=== PATIENT | male | born 1975 | race Two or more races ===

== ENCOUNTER 2024-06-22 11:29 | Emergency (ER) | payer MEDICAID, SELFPAY ==
[2024-06-22 11:30] VITALS: BMI 29.6
[2024-06-22 11:51] VITALS: BP 118/77; PULSE 78; RESP 18; TEMP 36.8; O2SAT 98
--- NOTE | 2024-06-22 12:17 | PD.EDEYE ---
ED Eye Problem RME/HPI General Chief complaint: Eye Problems Stated complaint: RIGHT EYE SWELLING/PAIN AND TEARING SINCE LAST NIG Time Seen by Provider: 06/22/24 12:02 Source: patient Arrival date/time: 06/22/24 11:29 This is a 49-year-old male who presents to the emergency department with complaints of pain and irritation to his right eye. Patient states he was walking around and felt debris fall into his right eye. Since then has been irritating every time he blinks. Denies any eye pain other than irritation. Patient denies any other associated symptoms or aggravating factors. No modifying factors, no radiation, no migration. Denies Diplopia or difficulty with vision. Mode of arrival: ambulatory Limitations: no limitations Related Data Previous Rx's ?Medication ?Instructions ?Recorded clindamycin HCl 300 mg capsule 300 mg PO TID #21 caps 08/22/23 ibuprofen 800 mg tablet 800 mg PO TID PRN pain #30 tabs 08/22/23 cephalexin 500 mg capsule 500 mg PO QID #28 caps 08/26/23 tramadol 37.5 mg-acetaminophen 325 1 tab PO Q8H PRN pain #15 tabs 05/13/24 mg tablet ibuprofen 800 mg tablet 800 mg PO Q8H PRN pain #20 tabs 06/22/24 ofloxacin 0.3 % eye drops See Rx Instructions ophthalmic 06/22/24 (eye) .COMPLEX #10 mL Allergies Allergy/AdvReac Type Severity Reaction Status Date / Time No Known Allergies Allergy Verified 06/22/24 11:32 Review of Systems Review of Systems Systems Reviewed: All systems reviewed, normal except as documented Narrative Review of Systems: Gen: No fever, no chills, no weight loss EYES: No discharge, no visual changes, +eye irritation HEENT: No ear pain, no congestion, no sore throat PULM: No shortness of breath, no cough, no congestion CV: No chest pain, no dyspnea on exertion, no palpitations GI: No nausea, no vomiting, no diarrhea, no pain, no constipation : No frequency, no urgency,? no dysuria Musc/skel: No joint pain, no back pain Skin: No rash? Psyc: No hallucinations, no depression Heme/Lymph: No easy bleeding or bruising tendencies Neuro: No weakness, no headache Past Medical History Past Medical History CARDIAC: Negative Cardiac Disorders or Congestive Heart Failure RESPIRATORY: Negative Chronic Obstructive Pulmonary Disease (COPD) or Asthma GENITOURINARY: Negative Renal Disease ENDOCRINE: Negative Diabetes Mellitus Type 1 or Diabetes Mellitus Type 2 HEMATOLOGIC: Negative Sickle Cell Disease Social History SMOKING STATUS: Never smoker SUBSTANCE USE: does not use ED Exam General Limitations: Present no limitations General appearance: Present alert and in no apparent distress Head Head exam: Present atraumatic Eye Eye exam: Present PERRL, EOMI and conjunctival injection Expanded Eye Exam Eyelids: right: erythema Pupils: Bilateral: regular, round and reactive Sclera/Conjunctival: right: injection ENT ENT exam: Present normal oropharynx and mucous membranes moist Expanded ENT Exam Nasal speculum exam: Bilateral: normal Teeth exam: Present normal inspection Neck Neck exam: Present normal inspection, full ROM and trachea midline Chest Chest inspection: Present normal inspection and symmetric chest wall rise Respiratory Respiratory exam: Present normal lung sounds bilaterally Cardiovascular Cardiovascular exam: Present regular rate, normal rhythm and normal heart sounds Abdominal Exam Abdominal exam: Present soft and normal bowel sounds Extremities Exam Extremities exam: Present normal inspection and full ROM Back Exam Back exam: Present normal inspection and full ROM Neurological Exam Neurological exam: Present alert, oriented X3 and CN II-XII intact Psychiatric Psychiatric exam: Present normal affect and normal mood Skin Skin exam: Present warm, dry, intact and normal color Course Quality Measures none Orders Category Date Time Status Hdz Lamp to Bedside X1 Care 06/22/24 12:02 Completed Fluorescein Sodium [[id number]] Med 06/22/24 12:02 Discontinued 1 mg BOTH EYES X1 ONE TETRACAINE Op Ju 0.5% [Pontocaine Op Ju 0.5%] Med 06/22/24 12:02 Discontinued 1 drop RIGHT EYE X1 ONE Vital Signs Vital signs: Vital Signs Temperature 98.3 F 06/22/24 11:51 Pulse Rate 78 06/22/24 11:51 Respiratory Rate 18 06/22/24 11:51 Blood Pressure 118/77 06/22/24 11:51 Pulse Oximetry (%) 98 06/22/24 11:51 Oxygen Delivery Method Room Air 06/22/24 11:51 Eye MDM Narrative MDM Narrative:: Patient noted to have corneal abrasion on fluorescein examination with wood's lamp of the right eye. Patient denies use contact lens use, and has no other findings suggestive of corneal ulceration at this time. No evidence of corneal foreign body on exam. Significant improvement in pain and visual acuity noted with application of topical anesthetic to the eye. Prior to discharge, we discussed return precautions, treatment with lubricating eye drops and NSAIDs, ABX and follow up with primary care doctor within 1 week as needed for further evaluation, and the patient demonstrated understanding and agreement. Patient data External records reviewed:: [facility] previous records Clinical information provided by:: patient Social determinants that could affect healthcare access:: none Patient has the following chronic illnesses:: no How is presenting disease/condition affected by chronic disease/condition?: no chronic disease Evaluation data The following diagnostics were reviewed and interpreted by me:: other (specify) Lab and/or radiology exams considered but not ordered:: no Interpretation Summary: n/a Medications / Prescriptions Medications or Prescriptions considered but not ordered:: no Medication administrations:: Medication Administration History Discontinued Medications Fluorescein Sodium (Fluorescein Sod 1 Mg Strp) 1 mg BOTH EYES X1 ONE Stop: 06/22/24 12:03 Last Admin: 06/22/24 13:23 Dose: 1 mg Documented By: Tetracaine HCl (Tetracaine Pf Op Ju 0.5% 4 Ml Drpette) 1 drop RIGHT EYE X1 ONE Stop: 06/22/24 12:03 Last Admin: 06/22/24 13:23 Dose: 1 drop Documented By: All medications administered and effective Consultations Consultation(s) initiated? (list below): No Diagnosis Eye Problem Differential Diagnosis: corneal abrasion, conjunctivitis, periorbital cellulitis, subconjunctival hemorrhage and corneal ulcer Most likely diagnosis given after review of the tests above:: corneal abrasion Admission Indicated Admission indicated?: not indicated Admission Request Was there a request for admission?: No Disposition Plan Disposition Plan: Discharge Discharge Attestation Discharge Attestation: The patient and all family members were given an opportunity to ask questions and understood the discharge instructions. Discharge instructions specifically effects, indications for sooner follow up or return to the emergency department, and the expected course of current diagnosis. Patient condition: Stable Discharge Plan Plan Patient Disposition: HOME (Self Care) Patient condition on transfer: Stable Prescriptions/Referrals Prescriptions/Med Rec: New ofloxacin 0.3 % drops See Rx Instructions .ROUTE .COMPLEX Qty: 10 0RF Rx Instructions: put 1-2 drps into affected eye(s) every 2-4 h x 2 days, then 1-2 drps 4 times/day days 3-7 ibuprofen 800 mg tablet 800 mg PO Q8H PRN (Reason: pain) Qty: 20 0RF No Action cephalexin 500 mg capsule 500 mg PO QID Qty: 28 0RF clindamycin HCl 300 mg capsule 300 mg PO TID Qty: 21 0RF ibuprofen 800 mg tablet 800 mg PO TID PRN (Reason: pain) Qty: 30 0RF tramadol-acetaminophen 37.5-325 mg tablet 1 tab PO Q8H PRN (Reason: pain) Qty: 15 0RF Referrals: Kapil Landis MD [Physician] - In 1 week Problem List Clinical Impression: Cornea abrasion Patient/Caregiver Discharge Instructions Discharge Activity: activity as tolerated Education Materials: ED Corneal Abrasion Additional Instructions: - You need to make AN appointment with an eyelet machine operator for further evaluation. Use the drops as directed. reTurn to the emergency department with any worsening symptoms any condition Print Language: Chinese Stand Alone Forms: Angela Award Info., Patient Portal Info Letter Attestation MD Attestation The patient was seen by the midlevel practitioner. I, the co-signing physician, was present during the entire ER visit. While I did not physically examine the patient, I was available for consultation as needed.
[2024-06-22] MEDS: TETRACAINE PF OP SOL 0.5% 4 ML DRPETTE 1 DROP RIGHT EYE (13:23)
[2024-06-22] MEDS: FLUORESCEIN SOD 1 MG STRP BOTH EYES (13:23)
== END 2024-06-22 13:25 | disposition home or self-care (01) ==
LOC: SERX 13:22
PROVIDERS: Emergency Provider Emergency Medicine; PCP Family Medicine
DX: S05.01XA Injury of conjunctiva and corneal abrasion without foreign body, right eye, initial encounter (principal); W44.8XXA Other foreign body entering into or through a natural orifice, initial encounter; Y93.01 Activity, walking, marching and hiking
CPT/HCPCS: 99283

== ENCOUNTER 2024-08-24 05:19 | Emergency (ER) | payer MEDICAID, SELFPAY ==
[2024-08-24 05:21] VITALS: BMI 30.4
[2024-08-24 05:49] VITALS: BP 125/76; PULSE 83; RESP 17; TEMP 36.7; O2SAT 98
--- NOTE | 2024-08-24 06:55 | EDNOTE_ITS ---
ED Skin Abcess FB-RME/HPI General Chief complaint: Skin/Abscess/Foreign Body Stated complaint: HEAD ABSCESS Time Seen by Provider: 08/24/24 06:20 Arrival date/time: 08/24/24 05:19 49-year-old male presents emergency department with complaints of abscess to his scalp patient report symptoms ongoing since Sunday patient was no fever nausea or vomiting Limitations: no limitations Related Data Previous Rx's ?Medication ?Instructions ?Recorded clindamycin HCl 300 mg capsule 300 mg PO TID #21 caps 08/22/23 ibuprofen 800 mg tablet 800 mg PO TID PRN pain #30 t abs 08/22/23 cephalexin 500 mg capsule 500 mg PO QID #28 caps 08/26 tramadol 37.5 mg-acetaminophen 325 1 tab PO Q8H PRN pa in #15 tabs 05/13/24 mg tablet ibuprofen 800 mg tablet 800 mg PO Q8H PRN pain #20 t abs 06/22/24 ofloxacin 0.3 % eye drops See Rx Instructions ophthalm ic 06/22/24 (eye) .COMPLEX #10 mL clindamycin HCl 150 mg capsule 450 mg (3 x 150 mg) PO TID 7 days 08/24/24 #63 caps ibuprofen 800 mg tablet 800 mg PO TID PRN pain #30 t abs 08/24/24 mupirocin 2 % topical ointment 1 applic topical TID 10 days #22 08/24/24 grams Allergies Allergy/AdvReac Type Severity Reaction Status Date / Time No Known Allergies Allergy Verified 06/22/24 11:32 Review of Systems Review of Systems Systems Reviewed: All systems reviewed, normal except as documented Constitutional Constitutional: Reports system reviewed and no additional complaints, except as documented, Denies fever(s) and Denies headache(s) Eyes Eyes: Reports system reviewed and no additional complaints, except as documented and Denies blurry vision ENT Ears, Nose, Mouth, and Throat: Reports system reviewed and no additional complaints, except as documented, Denies headache(s), Denies nasal congestion and Denies nasal discharge Cardiovascular Cardiovascular: Reports system reviewed and no additional complaints, except as documented, Denies chest pain and Denies dyspnea Respiratory Respiratory: Reports system reviewed and no additional complaints, except as documented, Denies chest congestion, Denies cough and Denies dyspnea Gastrointestinal Gastrointestinal: Reports system reviewed and no additional complaints, except as documented and Denies abdominal pain Integumentary/Breasts Skin/Breast: Reports system reviewed and no additional complaints, except as documented, Denies rash and Reports other (Abscess scalp) Neurologic Neurologic: Reports system reviewed and no additional complaints, except as documented, Reports as per HPI and Denies headache(s) Past Medical History Past Medical History NEUROLOGIC: Negative Neurological Disorders CARDIAC: Negative Cardiac Disorders ED Exam General Limitations: Present no limitations General appearance: Present alert and in no apparent distress Expanded Head Exam Head image: 2 1. Abscess scalp Eye Eye exam: Present normal appearance, PERRL and EOMI ENT ENT exam: Present normal exam, normal oropharynx and mucous membranes moist Neck Neck exam: Present normal inspection, full ROM and trachea midline Chest Chest inspection: Present normal inspection and symmetric chest wall rise Respiratory Respiratory exam: Present normal lung sounds bilaterally Cardiovascular Cardiovascular exam: Present regular rate, normal rhythm and normal heart sounds Abdominal Exam Abdominal exam: Present soft and normal bowel sounds Extremities Exam Extremities exam: Present normal inspection and full ROM Back Exam Back exam: Present normal inspection and full ROM Neurological Exam Neurological exam: Present alert, oriented X3 and CN II-XII intact Psychiatric Psychiatric exam: Present normal affect and normal mood Skin Skin exam: Present warm, dry, intact and normal color Course Quality Measures none Orders Category Date Time Status Set Up Suture Tray STAT Care 08/24/24 06:29 Active Wound Care NOW Care 08/24/24 06:29 Active Ibuprofen Tab [Motrin Tab] Med 08/24/24 06:55 Discontinued 800 mg PO X1 ONE Lidocaine 1% 20 ml [Xylocaine 1% 20 ML] Med 08/24/24 06:53 Discontinued 2.1 ml INFL X1 ONE Lidocaine 1% 20 ml [Xylocaine 1% 20 ML] Med 08/24/24 06:29 Discontinued 20 ml INFL X1 ONE cefTRIAXone [Rocephin] Med 08/24/24 06:53 Discontinued 1,000 mg IM X1 ONE Vital Signs Vital signs: Vital Signs Temperature 98.1 F 08/24/24 05:49 Pulse Rate 83 08/24/24 05:49 Respiratory Rate 17 08/24/24 05:49 Blood Pressure 125/76 08/24/24 05:49 Pulse Oximetry (%) 98 08/24/24 05:49 Oxygen Delivery Method Room Air 08/24/24 05:49 O2 saturation 98% room air within normal limits Procedures -ED Abscess I/D Site: scalp Side (if applicable): left Local Anesthetic: lidocaine 1% Amount of anesthesia used (mL): 5 Technique: incised with #11 blade Amount of fluid expressed (mL): 5 Irrigation: Yes Packing used?: none Complications: pain Skin / Abscess / Foreign Body MDM Narrative MDM Narrative:: 49-year-old male presents emergency department with complaints of abscess to his scalp patient report symptoms ongoing since Sunday patient was no fever nausea or vomiting On exam patient is abscess left side of his scalp I&D performed copious amounts of pus and drainage removed Patient given antibiotics here as well as pain medication Patient discharged home with antibiotics and pain medication Patient discharged home in no distress to follow-up with primary care doctor in the next 24 to 48 hours and for any worsening symptoms to return to the ER immediately Patient data External records reviewed:: [facility] previous records Clinical information provided by:: patient Social determinants that could affect healthcare access:: none Patient has the following chronic illnesses:: None How is presenting disease/condition affected by chronic disease/condition?: no chronic disease (N/A) Evaluation data The following diagnostics were reviewed and interpreted by me:: other (specify) (N/A) Lab and/or radiology exams considered but not ordered:: Consider not ordered Interpretation Summary: N/A Medications / Prescriptions Medications or Prescriptions considered but not ordered:: Given Medication administrations:: Medication Administration History Discontinued Medications Ceftriaxone Sodium (Ceftriaxone Sod Inj 1,000 Mg Vial) 1,000 mg IM X1 ONE Stop: 08/24/24 06:54 Ibuprofen (Ibuprofen Tab 400 Mg Tablet) 800 mg PO X1 ONE Stop: 08/24/24 06:56 Lidocaine HCl (Lidocaine Hcl 1% 20 Ml Vial) 20 ml INFL X1 ONE Stop: 08/24/24 06:30 Lidocaine HCl (Lidocaine Hcl 1% 20 Ml Vial) 2.1 ml INFL X1 ONE Stop: 08/24/24 06:54 Given Consultations Consultation(s) initiated? (list below): No Diagnosis Skin/Abscess Differential Diagnosis: abscess of skin or subcutaneous tissue and cellulitis Most likely diagnosis given after review of the tests above:: Abscess Admission Indicated Admission indicated?: not indicated Admission Request Was there a request for admission?: No Disposition Plan Disposition Plan: Discharge Discharge Attestation Discharge Attestation: The patient and all family members were given an opportunity to ask questions and understood the discharge instructions. Discharge instructions specifically effects, indications for sooner follow up or return to the emergency department, and the expected course of current diagnosis. Patient condition: Stable Discharge Plan Plan Patient Disposition: HOME (Self Care) Disposition Comment: Stable Prescriptions/Referrals Prescriptions/Med Rec: New ibuprofen 800 mg tablet 800 mg PO TID PRN (Reason: pain) Qty: 30 0RF clindamycin HCl 150 mg capsule 450 mg PO TID 7 Days Qty: 63 0RF mupirocin 2 % ointment 1 applic topical TID 10 Days Qty: 22 0RF No Action cephalexin 500 mg capsule 500 mg PO QID Qty: 28 0RF clindamycin HCl 300 mg capsule 300 mg PO TID Qty: 21 0RF ibuprofen 800 mg tablet 800 mg PO TID PRN (Reason: pain) Qty: 30 0RF tramadol-acetaminophen 37.5-325 mg tablet 1 tab PO Q8H PRN (Reason: pain) Qty: 15 0RF ofloxacin 0.3 % drops See Rx Instructions .ROUTE .COMPLEX Qty: 10 0RF Rx Instructions: put 1-2 drps into affected eye(s) every 2-4 h x 2 days, then 1-2 drps 4 times/day days 3-7 ibuprofen 800 mg tablet 800 mg PO Q8H PRN (Reason: pain) Qty: 20 0RF Referrals: No Primary/Family,Physician [Referring Provider] - 08/25/24 Problem List Clinical Impression: Abscess of scalp Patient/Caregiver Discharge Instructions Education Materials: ED Abscess, Incision And Drainage Additional Instructions: Please follow up with your primary care doctor in the next 24-48hrs for any worsening symptoms return here immediately Print Language: Angolan Stand Alone Forms: Angela Award Info., Patient Portal Info Letter PA/APPLICATION DESIGN ENGINEER Supervising Physician PA/APPLICATION DESIGN ENGINEER Supervising Physician: Dr Glynn
[2024-08-24] MEDS: IBUPROFEN TAB 400 MG TABLET 800 MG PO (07:02)
[2024-08-24] MEDS: LIDOCAINE HCL 1% 20 ML VIAL INFL (07:04)
[2024-08-24] MEDS: cefTRIAXone SOD INJ 1,000 MG VIAL 1000 MG IM (07:06)
[2024-08-24 07:20] VITALS: BP 120/78; PULSE 74; RESP 16; TEMP 36.7; O2SAT 99
== END 2024-08-24 07:20 | disposition home or self-care (01) ==
PROVIDERS: Emergency Provider Emergency Medicine; PCP Family Medicine
DX: L02.811 Cutaneous abscess of head [any part, except face] (principal)
CPT/HCPCS: 10060; 96372; 99283; J0696; J3490; A9270

== ENCOUNTER 2024-10-16 06:57 | Emergency (ER) | payer MEDICAID, SELFPAY ==
[2024-10-16 06:58] VITALS: BMI 31.8
[2024-10-16 07:23] VITALS: BP 148/74; PULSE 99; RESP 18; TEMP 37.2; O2SAT 97
[2024-10-16] MEDS: LIDOCAINE HCL 1% 20 ML VIAL INFL (07:37)
[2024-10-16] MEDS: LIDOCAINE HCL 1% 20 ML VIAL 2.1 ML INFL (07:37)
[2024-10-16] MEDS: cefTRIAXone SOD INJ 1,000 MG VIAL 1000 MG IM (07:38)
--- NOTE | 2024-10-16 07:49 | EDNOTE_ITS ---
ED Skin Abcess FB-RME/HPI General Chief complaint: Skin/Abscess/Foreign Body Stated complaint: ASBCESS UNDER LEFT ARMPIT Time Seen by Provider: 10/16/24 06:59 Arrival date/time: 10/16/24 06:57 49-year-old male presents to the emergency department today complains of abscess to his left armpit patient reports symptoms ongoing for the last 3 days Limitations: no limitations Related Data Previous Rx's ?Medication ?Instructions ?Recorded clindamycin HCl 300 mg capsule 300 mg PO TID #21 caps 08/22/23 ibuprofen 800 mg tablet 800 mg PO TID PRN pain #30 t abs 08/22/23 cephalexin 500 mg capsule 500 mg PO QID #28 caps 08/26 tramadol 37.5 mg-acetaminophen 325 1 tab PO Q8H PRN pa in #15 tabs 05/13/24 mg tablet ibuprofen 800 mg tablet 800 mg PO Q8H PRN pain #20 t abs 06/22/24 ofloxacin 0.3 % eye drops See Rx Instructions ophthalm ic 06/22/24 (eye) .COMPLEX #10 mL ibuprofen 800 mg tablet 800 mg PO TID PRN pain #30 t abs 08/24/24 clindamycin HCl 150 mg capsule 450 mg (3 x 150 mg) PO TID 7 days 10/16/24 #63 caps hydrocodone 5 mg-acetaminophen 325 1 tab PO BID PRN pa in #10 tabs 10/16/24 mg tablet ibuprofen 800 mg tablet 800 mg PO TID PRN pain #30 t abs 10/16/24 Allergies Allergy/AdvReac Type Severity Reaction Status Date / Time No Known Allergies Allergy Verified 06/22/24 11:32 Review of Systems Review of Systems Systems Reviewed: All systems reviewed, normal except as documented Constitutional Constitutional: Reports system reviewed and no additional complaints, except as documented, Denies fever(s) and Denies headache(s) Eyes Eyes: Reports system reviewed and no additional complaints, except as documented and Denies blurry vision ENT Ears, Nose, Mouth, and Throat: Reports system reviewed and no additional complaints, except as documented, Denies headache(s), Denies nasal congestion and Denies nasal discharge Cardiovascular Cardiovascular: Reports system reviewed and no additional complaints, except as documented, Denies chest pain and Denies dyspnea Respiratory Respiratory: Reports system reviewed and no additional complaints, except as documented, Denies chest congestion, Denies cough and Denies dyspnea Gastrointestinal Gastrointestinal: Reports system reviewed and no additional complaints, except as documented and Denies abdominal pain Integumentary/Breasts Skin/Breast: Reports system reviewed and no additional complaints, except as documented, Denies rash and Reports other (Multiple abscess left axilla) Neurologic Neurologic: Reports system reviewed and no additional complaints, except as documented, Reports as per HPI and Denies headache(s) Past Medical History Past Medical History NEUROLOGIC: Negative Neurological Disorders CARDIAC: Negative Cardiac Disorders or Congestive Heart Failure RESPIRATORY: Negative Chronic Obstructive Pulmonary Disease (COPD) or Asthma GENITOURINARY: Negative Renal Disease ENDOCRINE: Negative Diabetes Mellitus Type 1 or Diabetes Mellitus Type 2 HEMATOLOGIC: Negative Sickle Cell Disease Social History SMOKING STATUS: Never smoker SUBSTANCE USE: does not use ED Exam General Limitations: Present no limitations General appearance: Present alert and in no apparent distress Head Head exam: Present atraumatic Eye Eye exam: Present normal appearance, PERRL and EOMI ENT ENT exam: Present normal exam, normal oropharynx and mucous membranes moist Neck Neck exam: Present normal inspection, full ROM and trachea midline Chest Chest inspection: Present normal inspection and symmetric chest wall rise Respiratory Respiratory exam: Present normal lung sounds bilaterally Cardiovascular Cardiovascular exam: Present regular rate, normal rhythm and normal heart sounds Abdominal Exam Abdominal exam: Present soft and normal bowel sounds Extremities Exam Extremities exam: Present normal inspection and full ROM Back Exam Back exam: Present normal inspection and full ROM Neurological Exam Neurological exam: Present alert, oriented X3 and CN II-XII intact Psychiatric Psychiatric exam: Present normal affect and normal mood Skin Skin exam: Present warm, dry and other (Multiple abscess with surrounding cellulitis left axilla) Course Quality Measures none Orders Category Date Time Status Lidocaine 1% 20 ml [Xylocaine 1% 20 ML] Med 10/16/24 07:27 Discontinued 2.1 ml INFL X1 ONE Lidocaine 1% 20 ml [Xylocaine 1% 20 ML] Med 10/16/24 07:27 Discontinued 20 ml INFL X1 ONE cefTRIAXone [Rocephin] Med 10/16/24 07:27 Discontinued 1,000 mg IM X1 ONE Vital Signs Vital signs: Vital Signs Temperature 98.9 F 10/16/24 07:23 Pulse Rate 99 10/16/24 07:23 Respiratory Rate 18 10/16/24 07:23 Blood Pressure 148/74 H 10/16/24 07:23 Pulse Oximetry (%) 97 10/16/24 07:23 Oxygen Delivery Method Room Air 10/16/24 07:23 O2 saturation 97% room air within normal limits Procedures -ED Abscess I/D Site: upper extremity Side (if applicable): left Sedation/analgesia: none Local Anesthetic: lidocaine 1% Amount of anesthesia used (mL): 10 Technique: incised with #11 blade Amount of fluid expressed (mL): 20 Irrigation: No Packing used?: plain Complications: pain Skin / Abscess / Foreign Body MDM Narrative MDM Narrative:: 49-year-old male presents to the emergency department today complains of abscess to his left armpit patient reports symptoms ongoing for the last 3 days On exam patient has abscess abscess to left axilla with surrounding cellulitis which required I&D Copious amounts of purulent drainage expressed from the abscess Packing applied Patient given Rocephin here in the emergency department Patient discharged with course of antibiotics instructed return tomorrow for packing removal and repeat Rocephin injection for worsening symptoms return immediately Patient data External records reviewed:: [facility] previous records Clinical information provided by:: patient Social determinants that could affect healthcare access:: none Patient has the following chronic illnesses:: None How is presenting disease/condition affected by chronic disease/condition?: no chronic disease Evaluation data The following diagnostics were reviewed and interpreted by me:: other (specify) (N/A) Lab and/or radiology exams considered but not ordered:: Consider not ordered Interpretation Summary: N/A Medications / Prescriptions Medications or Prescriptions considered but not ordered:: Given Medication administrations:: Medication Administration History Discontinued Medications Ceftriaxone Sodium (Ceftriaxone Sod Inj 1,000 Mg Vial) 1,000 mg IM X1 ONE Stop: 10/16/24 07:28 Last Admin: 10/16/24 07:38 Dose: 1,000 mg Documented By: KARY Lidocaine HCl (Lidocaine Hcl 1% 20 Ml Vial) 20 ml INFL X1 ONE Stop: 10/16/24 07:28 Last Admin: 10/16/24 07:37 Dose: 20 ml Documented By: KARY Lidocaine HCl (Lidocaine Hcl 1% 20 Ml Vial) 2.1 ml INFL X1 ONE Stop: 10/16/24 07:28 Last Admin: 10/16/24 07:37 Dose: 2.1 ml Documented By: KARY Given Consultations Consultation(s) initiated? (list below): No Diagnosis Skin/Abscess Differential Diagnosis: abscess of skin or subcutaneous tissue and cellulitis Most likely diagnosis given after review of the tests above:: Abscess with surrounding cellulitis left axilla Admission Indicated Admission indicated?: not indicated Admission Request Was there a request for admission?: No Disposition Plan Disposition Plan: Discharge Discharge Attestation Discharge Attestation: The patient and all family members were given an opportunity to ask questions and understood the discharge instructions. Discharge instructions specifically effects, indications for sooner follow up or return to the emergency department, and the expected course of current diagnosis. Patient condition: Stable Discharge Plan Plan Patient Disposition: HOME (Self Care) Disposition Comment: Stable Prescriptions/Referrals Prescriptions/Med Rec: New ibuprofen 800 mg tablet 800 mg PO TID PRN (Reason: pain) Qty: 30 0RF hydrocodone-acetaminophen 5-325 mg tablet 1 tab PO BID MDD 10 PRN (Reason: pain) Qty: 10 0RF clindamycin HCl 150 mg capsule 450 mg PO TID 7 Days Qty: 63 0RF No Action cephalexin 500 mg capsule 500 mg PO QID Qty: 28 0RF clindamycin HCl 300 mg capsule 300 mg PO TID Qty: 21 0RF ibuprofen 800 mg tablet 800 mg PO TID PRN (Reason: pain) Qty: 30 0RF tramadol-acetaminophen 37.5-325 mg tablet 1 tab PO Q8H PRN (Reason: pain) Qty: 15 0RF ofloxacin 0.3 % drops See Rx Instructions .ROUTE .COMPLEX Qty: 10 0RF Rx Instructions: put 1-2 drps into affected eye(s) every 2-4 h x 2 days, then 1-2 drps 4 times/day days 3-7 ibuprofen 800 mg tablet 800 mg PO Q8H PRN (Reason: pain) Qty: 20 0RF ibuprofen 800 mg tablet 800 mg PO TID PRN (Reason: pain) Qty: 30 0RF Referrals: Temporary Provider,ED [Primary Care Provider] - In 1 week Problem List Clinical Impression: Abscess of axilla, left Patient/Caregiver Discharge Instructions Education Materials: ED Abscess Antibiotic ... Additional Instructions: Please return tomorrow for reevaluation and repeat Rocephin injection for worsening symptoms return immediately Print Language: Syrian Stand Alone Forms: Angela Award Info., Patient Portal Info Letter PA/PACKAGE DELIVERY ROOM SERVICE RUNNER Supervising Physician LLUVIA/BOONE Supervising Physician: Dr Glynn
== END 2024-10-16 08:10 | disposition home or self-care (01) ==
PROVIDERS: Emergency Provider Emergency Medicine
DX: L02.412 Cutaneous abscess of left axilla (principal)
CPT/HCPCS: 10060; 96372; J0696; J3490

== ENCOUNTER 2024-10-17 12:22 | Emergency (ER) | payer MEDICAID, SELFPAY ==
[2024-10-17 13:28] VITALS: BP 104/73; PULSE 80; RESP 18; TEMP 36.8; O2SAT 98
--- NOTE | 2024-10-17 13:36 | EDNOTE_ITS ---
<Statement entered by Kim Lindsay MD - 10/17/24 14:58> As co-signing physician, I was present and available for consult prn. I concur with the plan and care as documented by the midlevel provider. ED Recheck Abnl Lab Rx-RME/HPI General Chief Complaint: Recheck/Abnormal Lab/Rx Stated Complaint: CAME FOR SHOT Time Seen by Provider: 10/17/24 12:46 Arrival date/time: 10/17/24 12:22 RME / HPI RME / HPI narrative: 49-year-old male patient was brought in by family for evaluation regarding request for ceftriaxone IM. Patient was seen here yesterday for abscess left axilla, incision and drainage was done, packing was done also. Came here and was advised to come for another shot of ceftriaxone IM. Patient verbalized significant provide of symptoms no fever currently taking clindamycin p.o. Related Data Previous Rx's ?Medication ?Instructions ?Recorded clindamycin HCl 300 mg capsule 300 mg PO TID #21 caps 08/22/23 ibuprofen 800 mg tablet 800 mg PO TID PRN pain #30 t abs 08/22/23 cephalexin 500 mg capsule 500 mg PO QID #28 caps 08/26 tramadol 37.5 mg-acetaminophen 325 1 tab PO Q8H PRN pa in #15 tabs 05/13/24 mg tablet ibuprofen 800 mg tablet 800 mg PO Q8H PRN pain #20 t abs 06/22/24 ofloxacin 0.3 % eye drops See Rx Instructions ophthalm ic 06/22/24 (eye) .COMPLEX #10 mL ibuprofen 800 mg tablet 800 mg PO TID PRN pain #30 t abs 08/24/24 clindamycin HCl 150 mg capsule 450 mg (3 x 150 mg) PO TID 7 days 10/16/24 #63 caps hydrocodone 5 mg-acetaminophen 325 1 tab PO BID PRN pa in #10 tabs 10/16/24 mg tablet ibuprofen 800 mg tablet 800 mg PO TID PRN pain #30 t abs 10/16/24 Allergies Allergy/AdvReac Type Severity Reaction Status Date / Time No Known Allergies Allergy Verified 10/17/24 12:24 Review of Systems Review of Systems Narrative Review of Systems: Review of system reviewed and within normal limits except mentioned in HPI ED Exam Narrative Physical exam: VITAL SIGNS: Reviewed. GENERAL APPEARANCE: Alert and interactive, follows commands, no acute distress, HEAD AND FACE: Non-traumatic. ENT: PERRL, pink conjunctivitis, eyelid no trauma, Mucous membrane moist. NECK: Supple, nontender, no nuchal rigidity. CHEST: No tenderness, no crepitus, no paradoxical movement, no retractions. LUNGS: Clear, well ventilated, symmetric, no rales, no wheezing, no ronchi, no stridor, good breath sounds bilaterally. HEART: Regular rate, regular rhythm, no murmur, no gallops. ABDOMEN: Soft, positive bowel sounds, nondistended, no guarding, nontender, no rebound, no masses, RECTAL: Deferred. GENITAL: Deferred. NEUROLOGICAL: Gross motor function intact sensory function intact, Appropriate for age. MUSCULOSKELETAL: low back nontender, full range of motion. EXTREMITIES: Status post I&D, left axillary area, with packing, and puslike drainage. Packing was mobilized by me. Full range of motion. SKIN: Color pink, dry, no rash, no lacerations, no abrasions, no contusions. LYMPHATICS: Deferred. Course Quality Measures none Orders Category Date Time Status cefTRIAXone [Rocephin] 1,000 mg Med 10/17/24 13:36 Discontinued Lidocaine 1% 20 ml [Xylocaine 1% 20 ML] 2.1 ml IM X1 Vital Signs Vital signs: Vital Signs Temperature 98.2 F 10/17/24 13:28 Pulse Rate 80 10/17/24 13:28 Respiratory Rate 18 10/17/24 13:28 Blood Pressure 104/73 10/17/24 13:28 Pulse Oximetry (%) 98 10/17/24 13:28 Oxygen Delivery Method Room Air 10/17/24 13:28 Recheck / Abnormal Lab / Rx MDM Narrative MDM Narrative:: 49-year-old male patient was brought in by family for evaluation regarding request for subtraction IM. Patient was seen here yesterday for abscess left axilla, incision and drainage was done, packing was done also. Came here and was advised to come for another shot of ceftriaxone IM. Patient verbalized significant provide of symptoms no fever currently taking clindamycin p.o. Patient received ceftriaxone IM. Patient was advised to come back tomorrow for removal of packing Patient data External records reviewed:: None Clinical information provided by:: none Social determinants that could affect healthcare access:: none Patient has the following chronic illnesses:: None How is presenting disease/condition affected by chronic disease/condition?: exacerbated by Evaluation data The following diagnostics were reviewed and interpreted by me:: other (specify) Lab and/or radiology exams considered but not ordered:: None Interpretation Summary: None Medications / Prescriptions Medications or Prescriptions considered but not ordered:: None Medication administrations:: Medication Administration History Discontinued Medications Ceftriaxone Sodium 1,000 mg/ (Lidocaine HCl 2.1 ml) 0 mg IM X1 ONE Stop: 10/17/24 13:37 Last Admin: 10/17/24 13:52 Dose: 1,000 mg Documented By: Ceftriaxone IM Consultations Consultation(s) initiated? (list below): No Diagnosis Recheck Differential Diagnosis: other (Wound check, abscess,abscess left axilla sp I and D) Most likely diagnosis given after review of the tests above:: Wound check Admission Indicated Admission indicated?: not indicated Admission Request Was there a request for admission?: No Disposition Plan Disposition Plan: Discharge Discharge Attestation Discharge Attestation: The patient was given an opportunity to ask questions and understood the discharge instructions. Discharge instructions specifically effects, indications for sooner follow up or return to the emergency department, and the expected course of current diagnosis. Patient condition: Stable Discharge Plan Plan Patient Disposition: HOME (Self Care) Disposition Comment: Stable Prescriptions/Referrals Prescriptions/Med Rec: No Action cephalexin 500 mg capsule 500 mg PO QID Qty: 28 0RF clindamycin HCl 300 mg capsule 300 mg PO TID Qty: 21 0RF ibuprofen 800 mg tablet 800 mg PO TID PRN (Reason: pain) Qty: 30 0RF tramadol-acetaminophen 37.5-325 mg tablet 1 tab PO Q8H PRN (Reason: pain) Qty: 15 0RF ofloxacin 0.3 % drops See Rx Instructions .ROUTE .COMPLEX Qty: 10 0RF Rx Instructions: put 1-2 drps into affected eye(s) every 2-4 h x 2 days, then 1-2 drps 4 times/day days 3-7 ibuprofen 800 mg tablet 800 mg PO Q8H PRN (Reason: pain) Qty: 20 0RF ibuprofen 800 mg tablet 800 mg PO TID PRN (Reason: pain) Qty: 30 0RF ibuprofen 800 mg tablet 800 mg PO TID PRN (Reason: pain) Qty: 30 0RF hydrocodone-acetaminophen 5-325 mg tablet 1 tab PO BID MDD 10 PRN (Reason: pain) Qty: 10 0RF clindamycin HCl 150 mg capsule 450 mg PO TID 7 Days Qty: 63 0RF Problem List Clinical Impression: Abscess of axilla, left, Wound check, abscess Patient/Caregiver Discharge Instructions Discharge Activity: activity as tolerated Education Materials: ED Wound Care Additional Instructions: Thank you for the opportunity for serving you today. You are stable for discharged . You are advised to: Follow-up with your PCP in 1 to 2 days Return to ED for worsening of symptoms Increase oral fluids Take medication as prescribed prescribed yesterday Please return to emergency room tomorrow for removal of packing Print Language: Chadian Stand Alone Forms: Angela Award Info., Patient Portal Info Letter PA/BOONE Supervising Physician LLUVIA/BOONE Supervising Physician: MD Neftali
[2024-10-17] MEDS: cefTRIAXone 1,000 MG, LIDOCAINE 1% 20 ML 2.1 ML IM (13:52)
== END 2024-10-17 15:15 | disposition home or self-care (01) ==
LOC: SERX 16:01
PROVIDERS: Emergency Provider Emergency Medicine
DX: L02.412 Cutaneous abscess of left axilla (principal)
CPT/HCPCS: 99283; J0696; J3490

== ENCOUNTER 2024-10-18 07:53 | Emergency (ER) | payer MEDICAID, SELFPAY ==
--- NOTE | 2024-10-18 08:30 | PC.NURSE ---
Wound is clean, small amount of bloody drainage noted. Cleaned with NS. repacked wound covered with abd pad and secured with taped. PT tolerated well.
[2024-10-18 08:37] VITALS: BP 124/84; PULSE 76; RESP 18; TEMP 36.7; O2SAT 99
--- NOTE | 2024-10-18 08:56 | EDNOTE_ITS ---
ED Skin Abcess FB-RME/HPI General Chief complaint: Skin/Abscess/Foreign Body Stated complaint: ABSCESS RECHECK Time Seen by Provider: 10/18/24 08:11 Arrival date/time: 10/18/24 07:53 RME / HPI RME / HPI narrative: DR. LINDSAY MAIN ED EVALUATION: 49 year old male with no past medical history presents to the Emergency Department after he was seen yesterday and told to come back today for a recheck of his left axilla abscess. No other complaints and no fevers or chills. Related Data Previous Rx's ?Medication ?Instructions ?Recorded clindamycin HCl 300 mg capsule 300 mg PO TID #21 caps 08/22/23 ibuprofen 800 mg tablet 800 mg PO TID PRN pain #30 t abs 08/22/23 cephalexin 500 mg capsule 500 mg PO QID #28 caps 08/26 tramadol 37.5 mg-acetaminophen 325 1 tab PO Q8H PRN pa in #15 tabs 05/13/24 mg tablet ibuprofen 800 mg tablet 800 mg PO Q8H PRN pain #20 t abs 06/22/24 ofloxacin 0.3 % eye drops See Rx Instructions ophthalm ic 06/22/24 (eye) .COMPLEX #10 mL ibuprofen 800 mg tablet 800 mg PO TID PRN pain #30 t abs 08/24/24 clindamycin HCl 150 mg capsule 450 mg (3 x 150 mg) PO TID 7 days 10/16/24 #63 caps hydrocodone 5 mg-acetaminophen 325 1 tab PO BID PRN pa in #10 tabs 10/16/24 mg tablet ibuprofen 800 mg tablet 800 mg PO TID PRN pain #30 t abs 10/16/24 Allergies Allergy/AdvReac Type Severity Reaction Status Date / Time No Known Allergies Allergy Verified 10/17/24 12:24 Review of Systems Review of Systems Systems Reviewed: All systems reviewed, normal except as documented Past Medical History Social History SMOKING STATUS: Never smoker SUBSTANCE USE: does not use ALCOHOL: Never ED Exam Narrative Physical exam: GENERAL APPEARANCE: alert and oriented x 4, well-developed, well-nourished, no acute distress VITALS: All vitals were reviewed and the pulse ox is 99% on room air, which is normal according to my interpretation. HEENT: Normocephalic, atraumatic; pupils equal, round, reactive to light; EOMI; mucous membranes pink, moist; oropharynx clear NECK: Supple LUNGS: CTABL; no wheezes, no rales, no rhonchi HEART: Regular rate, regular rhythm; normal S1, S2; no murmurs ABDOMEN: non distended; normal BS; soft, no tenderness, no guarding, no rebound; no masses, no organomegaly, no hernia BACK: no CVA tenderness EXTREMITIES: atraumatic; NEUROLOGIC: awake; alert and oriented x4; cranial nerves II-XII grossly intact; no focal sensory or motor deficits PSYCHIATRIC: appropriate mood and affect SKIN: no rashes; + left axilla 0.5 cm incision with 1 quarter inch packing hanging from the site There is minimal surrounding erythema, mild edema, and mild tenderness on palpation. Course Course Course Narrative: Wound packing removed. Loculations broken up with swab. Wound repacked with 1/4 inch iodoform packing. Patient tolerated well. No complications. No bleeding. Quality Measures none Vital Signs Vital signs: Vital Signs Temperature 98.0 F 10/18/24 08:37 Pulse Rate 76 10/18/24 08:37 Respiratory Rate 18 10/18/24 08:37 Blood Pressure 124/84 10/18/24 08:37 Pulse Oximetry (%) 99 10/18/24 08:37 Oxygen Delivery Method Room Air 10/18/24 08:37 Procedures -ED Procedure Comment Packed left axilla. Left axilla 0.5 cm incision with 1 quarter inch packing hanging from the side so I removed it and packed it again. Skin / Abscess / Foreign Body MDM Narrative MDM Narrative:: I, Marlene Holcomb, am scribing for and in the presence of Dr. Lindsay. Patient data External records reviewed:: [facility] previous records (Reviewed last ED visit dated 10/17/24, discharged with the following: Abscess of axilla, left) Clinical information provided by:: patient Social determinants that could affect healthcare access:: none Patient has the following chronic illnesses:: Denies any PMHx, surgeries, daily medications, or known allergies. How is presenting disease/condition affected by chronic disease/condition?: no chronic disease Evaluation data The following diagnostics were reviewed and interpreted by me:: other (specify) (none) Lab and/or radiology exams considered but not ordered:: none Interpretation Summary: n/a Medications / Prescriptions Medications or Prescriptions considered but not ordered:: none Medication administrations:: none Consultations Consultation(s) initiated? (list below): No Diagnosis Skin/Abscess Differential Diagnosis: abscess of skin or subcutaneous tissue, cellulitis and other (left abscess of axilla) Most likely diagnosis given after review of the tests above:: Wound check, abscess Abscess of axilla, left Encounter for removal of abscess packing Admission Indicated Admission indicated?: not indicated Admission Request Was there a request for admission?: No Disposition Plan Disposition Plan: Discharge Discharge Attestation Discharge Attestation: The patient and all family members were given an opportunity to ask questions and understood the discharge instructions. Discharge instructions specifically effects, indications for sooner follow up or return to the emergency department, and the expected course of current diagnosis. Patient condition: Stable Discharge Plan Plan Patient Disposition: HOME (Self Care) Prescriptions/Referrals Prescriptions/Med Rec: No Action cephalexin 500 mg capsule 500 mg PO QID Qty: 28 0RF clindamycin HCl 300 mg capsule 300 mg PO TID Qty: 21 0RF ibuprofen 800 mg tablet 800 mg PO TID PRN (Reason: pain) Qty: 30 0RF tramadol-acetaminophen 37.5-325 mg tablet 1 tab PO Q8H PRN (Reason: pain) Qty: 15 0RF ofloxacin 0.3 % drops See Rx Instructions .ROUTE .COMPLEX Qty: 10 0RF Rx Instructions: put 1-2 drps into affected eye(s) every 2-4 h x 2 days, then 1-2 drps 4 times/day days 3-7 ibuprofen 800 mg tablet 800 mg PO Q8H PRN (Reason: pain) Qty: 20 0RF ibuprofen 800 mg tablet 800 mg PO TID PRN (Reason: pain) Qty: 30 0RF ibuprofen 800 mg tablet 800 mg PO TID PRN (Reason: pain) Qty: 30 0RF hydrocodone-acetaminophen 5-325 mg tablet 1 tab PO BID MDD 10 PRN (Reason: pain) Qty: 10 0RF clindamycin HCl 150 mg capsule 450 mg PO TID 7 Days Qty: 63 0RF Problem List Clinical Impression: Wound check, abscess, Abscess of axilla, left, Encounter for removal of abscess packing Patient/Caregiver Discharge Instructions Education Materials: ED Abscess, Incision And Drainage Additional Instructions: Return to the emergency department tomorrow for recheck and repacking of abscess Print Language: Kyrgyz Stand Alone Forms: Angela Award Info., Patient Portal Info Letter
== END 2024-10-18 09:12 | disposition home or self-care (01) ==
LOC: SERX 08:59
PROVIDERS: Emergency Provider Emergency Medicine; PCP Family Medicine
DX: L02.412 Cutaneous abscess of left axilla (principal)
CPT/HCPCS: 99282

== ENCOUNTER 2024-10-19 21:38 | Emergency (ER) | payer MEDICAID, SELFPAY ==
[2024-10-19 22:10] VITALS: BP 123/71; PULSE 73; RESP 18; TEMP 36.7; O2SAT 96
--- NOTE | 2024-10-19 22:21 | EDNOTE_ITS ---
ED Wound/Laceration-RME/HPI General Chief Complaint: Wound Recheck / Suture Removal Stated Complaint: DRESSING CHANGE Time Seen by Provider: 10/19/24 21:40 Arrival date/time: 10/19/24 21:38 49 year old male present to emergency room with c/o of packing removal. pt has i/d done 2 days ago. pt denies any new symptoms currently. taking antibiotic as prescribed SEVERITY: Symptoms are described as being severe with limitations on activities of daily living CONTEXT: The patient is unable to identify any inciting events. DURATION/TIMING: The symptoms started approximately 2 days ASSOCIATED SYMPTOMS: The patient is unable to identify any other associated symptoms. MODIFYING FACTORS: The patient is unable to identify any alleviating or aggravating symptoms. PERTINENT ROS: no fevers, no cough, no chest pain/shortness of breath no nausea,vomiting, diarrhea, no dizziness/headache no rash no loc/syncope episode REVIEW OF SYSTEMS: See History of Present Illness - with the exception of those mentioned in the history of present illness, all other systems reviewed and reported as negative GENERAL: In general the patient is awake, interactive, in an emergency department gurney. HEAD/EYES/EARS/NOSE/THROAT: normo-cephalic, atraumatic, mucus membranes are moist, anicteric, palpebral conjunctiva is pink, trachea is midline. CARDIOVASCULAR: regular rate and regular rhythm, no murmurs, heart sounds are not distant, strong pulses in all four extremities that are equal and symmetric bilateral upper and lower left arm pit + packing intact. EXTREMITY: no tenderness to palpation over the long bones or large joints of the bilateral upper and lower extremities, no joint swelling, no joint erythema, no signs of trauma, no unilateral leg swelling and no peripheral edema. SKIN: warm, dry, well-perfused, no jaundice, no rash, no telangiectasias or petechia. PSYCH: calm, cooperative, no evidence of psychosis or agitation Related Data Previous Rx's ?Medication ?Instructions ?Recorded clindamycin HCl 300 mg capsule 300 mg PO TID #21 caps 08/22/23 ibuprofen 800 mg tablet 800 mg PO TID PRN pain #30 t abs 08/22/23 cephalexin 500 mg capsule 500 mg PO QID #28 caps 08/26 tramadol 37.5 mg-acetaminophen 325 1 tab PO Q8H PRN pa in #15 tabs 05/13/24 mg tablet ibuprofen 800 mg tablet 800 mg PO Q8H PRN pain #20 t abs 06/22/24 ofloxacin 0.3 % eye drops See Rx Instructions ophthalm ic 06/22/24 (eye) .COMPLEX #10 mL ibuprofen 800 mg tablet 800 mg PO TID PRN pain #30 t abs 08/24/24 clindamycin HCl 150 mg capsule 450 mg (3 x 150 mg) PO TID 7 days 10/16/24 #63 caps hydrocodone 5 mg-acetaminophen 325 1 tab PO BID PRN pa in #10 tabs 10/16/24 mg tablet ibuprofen 800 mg tablet 800 mg PO TID PRN pain #30 t abs 10/16/24 Allergies Allergy/AdvReac Type Severity Reaction Status Date / Time No Known Allergies Allergy Verified 10/17/24 12:24 Course Course Course Narrative: packing removed no complications no red streaking pt report abscess has improved since i/d Quality Measures none Vital Signs Vital signs: Vital Signs Temperature 98.1 F 10/19/24 22:10 Pulse Rate 73 10/19/24 22:10 Respiratory Rate 18 10/19/24 22:10 Blood Pressure 123/71 10/19/24 22:10 Pulse Oximetry (%) 96 10/19/24 22:10 Oxygen Delivery Method Room Air 10/19/24 22:10 Wound / Laceration Patient data External records reviewed:: [facility] previous records Clinical information provided by:: patient Social determinants that could affect healthcare access:: none (n/a ) Patient has the following chronic illnesses:: as stated in chart How is presenting disease/condition affected by chronic disease/condition?: uneffected by Evaluation data The following diagnostics were reviewed and interpreted by me:: other (specify) (n/a ) Lab and/or radiology exams considered but not ordered:: n/a Interpretation Summary: n/a Medications / Prescriptions Medications or Prescriptions considered but not ordered:: n/a Medication administrations:: n/a Consultations Consultation(s) initiated? (list below): No Diagnosis Wound Differential Diagnosis: other (wound packing removal , wound check ) Most likely diagnosis given after review of the tests above:: wound packing removal Admission Indicated Admission indicated?: not indicated Admission Request Was there a request for admission?: No Disposition Plan Disposition Plan: Discharge Discharge Attestation Discharge Attestation: The patient and all family members were given an opportunity to ask questions and understood the discharge instructions. Discharge instructions specifically effects, indications for sooner follow up or return to the emergency department, and the expected course of current diagnosis. Patient condition: Stable Discharge Plan Plan Patient Disposition: HOME (Self Care) Prescriptions/Referrals Prescriptions/Med Rec: No Action cephalexin 500 mg capsule 500 mg PO QID Qty: 28 0RF clindamycin HCl 300 mg capsule 300 mg PO TID Qty: 21 0RF ibuprofen 800 mg tablet 800 mg PO TID PRN (Reason: pain) Qty: 30 0RF tramadol-acetaminophen 37.5-325 mg tablet 1 tab PO Q8H PRN (Reason: pain) Qty: 15 0RF ofloxacin 0.3 % drops See Rx Instructions .ROUTE .COMPLEX Qty: 10 0RF Rx Instructions: put 1-2 drps into affected eye(s) every 2-4 h x 2 days, then 1-2 drps 4 times/day days 3-7 ibuprofen 800 mg tablet 800 mg PO Q8H PRN (Reason: pain) Qty: 20 0RF ibuprofen 800 mg tablet 800 mg PO TID PRN (Reason: pain) Qty: 30 0RF ibuprofen 800 mg tablet 800 mg PO TID PRN (Reason: pain) Qty: 30 0RF hydrocodone-acetaminophen 5-325 mg tablet 1 tab PO BID MDD 10 PRN (Reason: pain) Qty: 10 0RF clindamycin HCl 150 mg capsule 450 mg PO TID 7 Days Qty: 63 0RF Referrals: Stephan Gutiérrez MD [Primary Care Provider] - In 1 week Problem List Clinical Impression: Abscess packing removal Patient/Caregiver Discharge Instructions Education Materials: ED Wound Care Print Language: Jamaican Stand Alone Forms: Angela Award Info., Patient Portal Info Letter
--- NOTE | 2024-10-19 22:33 | PC.NURSE ---
no answer x 1 at 2039. checked outside and lobby.
== END 2024-10-19 22:42 | disposition home or self-care (01) ==
PROVIDERS: Emergency Provider Emergency Medicine; PCP Family Medicine
DX: Z48.01 Encounter for change or removal of surgical wound dressing (principal)
CPT/HCPCS: 99282

== ENCOUNTER 2024-11-24 07:55 | Emergency (ER) | payer MEDICAID, SELFPAY ==
[2024-11-24 08:04] VITALS: BP 132/87; PULSE 75; RESP 18; TEMP 36.8; O2SAT 97
--- NOTE | 2024-11-24 08:10 | EDNOTE_ITS ---
ED General RME/HPI General Chief complaint: General Adult/Misc Complain Stated complaint: PAIN L) TMJ X 2 DAYS; 04/01 PAIN Time Seen by Provider: 11/24/24 08:08 Arrival date/time: 11/24/24 07:55 49-year-old male presents to the emergency department for complaint of left ear pain ongoing x 2 days patient reports drainage from the left ear Limitations: no limitations Related Data Previous Rx's ?Medication ?Instructions ?Recorded clindamycin HCl 300 mg capsule 300 mg PO TID #21 caps 08/22/23 ibuprofen 800 mg tablet 800 mg PO TID PRN pain #30 t abs 08/22/23 cephalexin 500 mg capsule 500 mg PO QID #28 caps 08/26 tramadol 37.5 mg-acetaminophen 325 1 tab PO Q8H PRN pa in #15 tabs 05/13/24 mg tablet ibuprofen 800 mg tablet 800 mg PO Q8H PRN pain #20 t abs 06/22/24 ofloxacin 0.3 % eye drops See Rx Instructions ophthalm ic 06/22/24 (eye) .COMPLEX #10 mL ibuprofen 800 mg tablet 800 mg PO TID PRN pain #30 t abs 08/24/24 hydrocodone 5 mg-acetaminophen 325 1 tab PO BID PRN pa in #10 tabs 10/16/24 mg tablet ibuprofen 800 mg tablet 800 mg PO TID PRN pain #30 t abs 10/16/24 amoxicillin 875 mg-potassium 1 tab PO BID 7 days #14 t abs 11/24/24 clavulanate 125 mg tablet ibuprofen 800 mg tablet 800 mg PO TID PRN pain #30 t abs 11/24/24 ofloxacin 0.3 % ear drops 10 drop otic (ear) QDAY 10 d ays 11/24/24 #10 mL Allergies Allergy/AdvReac Type Severity Reaction Status Date / Time No Known Allergies Allergy Verified 11/24/24 08:00 Review of Systems Review of Systems Systems Reviewed: All systems reviewed, normal except as documented Constitutional Constitutional: Reports system reviewed and no additional complaints, except as documented, Denies fever(s) and Denies headache(s) Eyes Eyes: Reports system reviewed and no additional complaints, except as documented and Denies blurry vision ENT Ears, Nose, Mouth, and Throat: Reports system reviewed and no additional complaints, except as documented, Denies headache(s), Denies nasal congestion, Denies nasal discharge and Reports other (Ear pain, ear discharge) Cardiovascular Cardiovascular: Reports system reviewed and no additional complaints, except as documented, Denies chest pain and Denies dyspnea Respiratory Respiratory: Reports system reviewed and no additional complaints, except as documented, Denies chest congestion, Denies cough and Denies dyspnea Gastrointestinal Gastrointestinal: Reports system reviewed and no additional complaints, except as documented and Denies abdominal pain Integumentary/Breasts Skin/Breast: Reports system reviewed and no additional complaints, except as documented and Denies rash Neurologic Neurologic: Reports system reviewed and no additional complaints, except as documented, Reports as per HPI and Denies headache(s) Past Medical History Past Medical History NEUROLOGIC: Negative Neurological Disorders CARDIAC: Negative Cardiac Disorders or Congestive Heart Failure RESPIRATORY: Negative Chronic Obstructive Pulmonary Disease (COPD) or Asthma GENITOURINARY: Negative Renal Disease ENDOCRINE: Negative Diabetes Mellitus Type 1 or Diabetes Mellitus Type 2 HEMATOLOGIC: Negative Sickle Cell Disease Social History SMOKING STATUS: Former smoker SUBSTANCE USE: does not use ED Exam General Limitations: Present no limitations General appearance: Present alert and in no apparent distress Head Head exam: Present atraumatic, normocephalic and normal inspection Eye Eye exam: Present normal appearance, PERRL and EOMI ENT ENT exam: Present mucous membranes moist and other (Left ear pain, drainage) Neck Neck exam: Present normal inspection, full ROM and trachea midline Chest Chest inspection: Present normal inspection and symmetric chest wall rise Respiratory Respiratory exam: Present normal lung sounds bilaterally Cardiovascular Cardiovascular exam: Present regular rate, normal rhythm and normal heart sounds Abdominal Exam Abdominal exam: Present soft and normal bowel sounds Extremities Exam Extremities exam: Present normal inspection and full ROM Back Exam Back exam: Present normal inspection and full ROM Neurological Exam Neurological exam: Present alert, oriented X3 and CN II-XII intact Psychiatric Psychiatric exam: Present normal affect and normal mood Skin Skin exam: Present warm, dry, intact and normal color Course Quality Measures none Orders Category Date Time Status Ibuprofen Tab [Motrin Tab] Med 11/24/24 08:08 Discontinued 800 mg PO X1 ONE Lidocaine 1% 20 ml [Xylocaine 1% 20 ML] Med 11/24/24 08:08 Discontinued 2.1 ml INFL X1 ONE cefTRIAXone [Rocephin] Med 11/24/24 08:08 Discontinued 1,000 mg IM X1 ONE Vital Signs Vital signs: Vital Signs Temperature 98.3 F 11/24/24 08:04 Pulse Rate 75 11/24/24 08:04 Respiratory Rate 18 11/24/24 08:04 Blood Pressure 132/87 H 11/24/24 08:04 Pulse Oximetry (%) 97 11/24/24 08:04 Oxygen Delivery Method Room Air 11/24/24 08:04 O2 saturation 97% on room air with normal limits Discharge Plan Plan Patient Disposition: HOME (Self Care) Discharge Disposition comment: stable Prescriptions/Referrals Prescriptions/Med Rec: New ibuprofen 800 mg tablet 800 mg PO TID PRN (Reason: pain) Qty: 30 0RF ofloxacin 0.3 % drops 10 drop otic (ear) QDAY 10 Days Qty: 10 0RF amoxicillin-pot clavulanate 875-125 mg tablet 1 tab PO BID 7 Days Qty: 14 0RF No Action cephalexin 500 mg capsule 500 mg PO QID Qty: 28 0RF clindamycin HCl 300 mg capsule 300 mg PO TID Qty: 21 0RF ibuprofen 800 mg tablet 800 mg PO TID PRN (Reason: pain) Qty: 30 0RF tramadol-acetaminophen 37.5-325 mg tablet 1 tab PO Q8H PRN (Reason: pain) Qty: 15 0RF ofloxacin 0.3 % drops See Rx Instructions .ROUTE .COMPLEX Qty: 10 0RF Rx Instructions: put 1-2 drps into affected eye(s) every 2-4 h x 2 days, then 1-2 drps 4 times/day days 3-7 ibuprofen 800 mg tablet 800 mg PO Q8H PRN (Reason: pain) Qty: 20 0RF ibuprofen 800 mg tablet 800 mg PO TID PRN (Reason: pain) Qty: 30 0RF ibuprofen 800 mg tablet 800 mg PO TID PRN (Reason: pain) Qty: 30 0RF hydrocodone-acetaminophen 5-325 mg tablet 1 tab PO BID MDD 10 PRN (Reason: pain) Qty: 10 0RF Problem List Clinical Impression: Otitis externa of left ear Patient/Caregiver Discharge Instructions Education Materials: Anatomy of the Ear Additional Instructions: Please follow up with your primary care doctor in the next 24-48hrs for any worsening symptoms return here immediately Print Language: Swedish Stand Alone Forms: Angela Award Info., Patient Portal Info Letter PA/[employer] Supervising Physician PA/[employer] Supervising Physician: Dr. Jorge MDM Narrative MDM hospital course (for use when minimal MDM required): 49-year-old male presents to the emergency department for complaint of left ear pain ongoing x 2 days patient reports drainage from the left ear On exam patient well-appearing patient does not appear ill or toxic in no acute distress Patient discharged home in no distress to follow-up with primary care doctor in the next 24 to 48 hours and for any worsening symptoms to return to the ER immediately Clinical Information Provided by: patient Medical Records reviewed [facility] Meds/Rx considered, not ordered describe: Given Labs/Rad/Tests considered, not ordered None Describe: N/A Chronic Illness/Social Conditions which may negatively complicate care or outcome(s)-explain: None or not applicable EKG EKG not done Labs Labs: none Imaging Imaging interpretation: none or see narrative above Medication Administration(s) Medication Administration History Discontinued Medications Ceftriaxone Sodium (Ceftriaxone Sod Inj 1,000 Mg Vial) 1,000 mg IM X1 ONE Stop: 11/24/24 08:09 Last Admin: 11/24/24 08:20 Dose: 1,000 mg Documented By: ER Ibuprofen (Ibuprofen Tab 400 Mg Tablet) 800 mg PO X1 ONE Stop: 11/24/24 08:09 Last Admin: 11/24/24 08:19 Dose: 800 mg Documented By: ER Lidocaine HCl (Lidocaine Hcl 1% 20 Ml Vial) 2.1 ml INFL X1 ONE Stop: 11/24/24 08:09 Last Admin: 11/24/24 08:21 Dose: 2.1 ml Documented By: ER Given Diagnosis Differential Diagnosis ED Complaint MDM: Otitis media, mastoiditis, otitis e xterna
[2024-11-24] MEDS: IBUPROFEN TAB 400 MG TABLET 800 MG PO (08:19)
[2024-11-24] MEDS: cefTRIAXone SOD INJ 1,000 MG VIAL 1000 MG IM (08:20)
[2024-11-24] MEDS: LIDOCAINE HCL 1% 20 ML VIAL 2.1 ML INFL (08:21)
== END 2024-11-24 08:56 | disposition home or self-care (01) ==
LOC: SERX 08:33
PROVIDERS: Emergency Provider Emergency Medicine; PCP Family Medicine
DX: H60.92 Unspecified otitis externa, left ear (principal)
CPT/HCPCS: 96372; 99283; J0696; J3490; A9270